=== PATIENT | female | born 2000 | race Caucasian/White ===

== ENCOUNTER → 2024-05-04 09:31 | Outpatient (REF) | payer BC, SELFPAY | LOC: RCS 09:31 | PROVIDERS: ATTENDING PHYSICIAN Nurse Practitioner Adult Health | DX: R00.0 Tachycardia, unspecified (principal); R61 Generalized hyperhidrosis; R00.2 Palpitations | CPT/HCPCS: 93225; 93226 ==

== ENCOUNTER → 2024-06-13 14:50 | Outpatient (REF) | payer BC, SELFPAY | LOC: RCS 14:50 | PROVIDERS: ATTENDING PHYSICIAN Nurse Practitioner Adult Health | DX: R00.0 Tachycardia, unspecified (principal); R61 Generalized hyperhidrosis; R00.2 Palpitations | CPT/HCPCS: 93306 ==

== ENCOUNTER → 2024-06-23 07:41 | Outpatient (REF) | payer BC, SELFPAY | LOC: RAD 07:41 | PROVIDERS: ATTENDING PHYSICIAN Nurse Practitioner Adult Health | DX: R61 Generalized hyperhidrosis (principal) | CPT/HCPCS: 71046 ==

== ENCOUNTER → 2024-06-30 12:52 | Outpatient (REF) | payer BC, SELFPAY | LOC: RCS 12:52 | PROVIDERS: ATTENDING PHYSICIAN Internal Medicine Cardiovascular Disease; FAMILY PHYSICIAN Nurse Practitioner Adult Health | DX: R00.2 Palpitations (principal); R06.02 Shortness of breath | CPT/HCPCS: 93017 ==

== ENCOUNTER → 2024-08-10 07:26 | Outpatient (REF) | payer OTHER, SELFPAY | LOC: RAD 07:26 | PROVIDERS: ATTENDING PHYSICIAN Nurse Practitioner Adult Health | DX: R00.0 Tachycardia, unspecified (principal); Z78.9 Other specified health status; R06.02 Shortness of breath; R07.89 Other chest pain | CPT/HCPCS: 71275; Q9967 ==

== ENCOUNTER → 2024-09-25 09:10 | Outpatient (REF) | payer OTHER, SELFPAY | LOC: REG 09:10 | PROVIDERS: ATTENDING PHYSICIAN Student in an Organized Health Care Education/Training Program; FAMILY PHYSICIAN Nurse Practitioner Adult Health | DX: K12.1 Other forms of stomatitis (principal); K21.9 Gastro-esophageal reflux disease without esophagitis; M25.50 Pain in unspecified joint; M25.551 Pain in right hip; M25.649 Stiffness of unspecified hand, not elsewhere classified; R23.2 Flushing; R76.8 Other specified abnormal immunological findings in serum | CPT/HCPCS: 73120; 73523 ==